=== PATIENT | female | born 1950 | race Caucasian/White ===

== ENCOUNTER → 2023-09-10 08:39 | Outpatient (REF) | payer MEDICARE, OTHER, SELFPAY ==
[2023-09-10 11:00] LABS: Urine Albumin Negative (Neg - Trace); Urine Bilirubin Negative (Negative); Urine Character Clear (Clear); Urine Color Yellow; Urine Glucose Negative (Negative); Urine Ketone Negative (Negative); Urine Leukocyte Negative (Negative); Urine Nitrite Negative (Negative); Urine Occult Blood Negative (Negative); Urine Specific Gravity 1.005 (<1.030); Urine Urobilinogen Negative (Neg - 1+)
== END ==
LOC: RAD 08:39
PROVIDERS: ATTENDING PHYSICIAN Specialist
DX: N39.0 Urinary tract infection, site not specified (principal)
CPT/HCPCS: 76770; 81003; 87086

== ENCOUNTER → 2024-08-31 12:35 | Outpatient (REF) | payer MEDICARE, OTHER, SELFPAY ==
[2024-08-31 16:14] LABS: Urine Albumin Negative (Neg - Trace); Urine Bilirubin Negative (Negative); Urine Character Clear (Clear); Urine Color Yellow; Urine Glucose Negative (Negative); Urine Ketone Negative (Negative); Urine Leukocyte 1+ (Negative); Urine Nitrite Negative (Negative); Urine Occult Blood 2+ (Negative); Urine Urobilinogen Negative (Neg - 1+)
[2024-08-31 16:30] LABS: Urine Squamous Cell >30 /LPF (Few)
[2024-08-31 16:31] LABS: Urine Bacteria Few (Negative)
[2024-08-31 16:32] LABS: Urine Mucus Few
== END ==
LOC: HWRAD 12:35
PROVIDERS: ATTENDING PHYSICIAN Specialist; FAMILY PHYSICIAN Internal Medicine
DX: N39.0 Urinary tract infection, site not specified (principal); N20.0 Calculus of kidney
CPT/HCPCS: 36415; 74018; 81003; 81015; 87086